=== PATIENT | female | born 1995 | race Caucasian/White ===

== ENCOUNTER → 2018-03-27 16:45 | Outpatient (CLI) | payer OTHER, MEDICAID, SELFPAY ==
[2018-03-27 17:16] LABS: Add Manual Diff / Slide Review NO; Basophils Percent Auto 0.9 % (0-2); Eosinophils Percent Auto 2.1 % (2-4); Hematocrit 39.8 % (36-46); Hemoglobin 13.3 g/dL (12.0-16.0); Lymphocytes Percent Auto 35.8 % (25-40); Mean Corpuscular HGB Conc 33.5 % (30-36); Mean Corpuscular Hemoglobin 29.4 PG (26-34); Mean Corpuscular Volume 87.7 fL (80-100); Monocytes Percent Auto 7.9 % (3-14); Neutrophils Absolute Auto 2900 /uL (3000-5900); Neutrophils Percent Auto 53.3 % (50-75); Platelet Count 219 X10^3/uL (150-400); Red Blood Cell Count 4.54 X10^6/uL (4.0-5.2); Red Cell Distribution Width 13.4 % (11.6-14.8); White Blood Cell Count 5.4 X10^3/uL (4.5-11.0)
[2018-03-27 17:58] LABS: INR 1.1 (0.9-1.3); Prothrombin Time 12.4 SECONDS (10.1-12.7)
[2018-03-27 18:01] LABS: PTT Partial Thromboplastin Tim 29 SECONDS (26.4-36.2)
== END ==
PROVIDERS: Family Provider Family Medicine; PCP Family Medicine; Visit Provider Physician Assistant
DX: T14.8XXA Other injury of unspecified body region, initial encounter (principal)
CPT/HCPCS: 36415; 85025; 85610; 85730

== ENCOUNTER → 2019-01-25 10:35 | Outpatient (CLI) | payer OTHER, MEDICAID, SELFPAY ==
[2019-01-25 11:14] LABS: Add Manual Diff / Slide Review NO; Basophils Absolute Auto 0 /uL (0-100); Basophils Percent Auto 0.8 % (0-2); Eosinophils Absolute Auto 100 /uL (0-450); Eosinophils Percent Auto 1.5 % (2-4); Hematocrit 39.5 % (36-46); Hemoglobin 13.2 g/dL (12.0-16.0); Lymphocytes Absolute Auto 1700 /uL (1100-4500); Mean Corpuscular HGB Conc 33.5 % (30-36); Mean Corpuscular Hemoglobin 29.2 PG (26-34); Mean Corpuscular Volume 87.4 fL (80-100); Monocytes Absolute Auto 400 /uL (0-900); Monocytes Percent Auto 6.7 % (3-14); Neutrophils Absolute Auto 3200 /uL (1500-7000); Platelet Count 214 X10^3/uL (150-400); Red Blood Cell Count 4.52 X10^6/uL (4.0-5.2); Red Cell Distribution Width 13.3 % (11.6-14.8); White Blood Cell Count 5.4 X10^3/uL (4.5-11.0)
[2019-01-25 11:16] LABS: Appearance Urine UA CLEAR; Bilirubin Urine UA NEGATIVE (NEGATIVE); Color Urine UA YELLOW; Glucose Urine UA NEGATIVE (Negative); Ketones Urine UA TRACE (NEGATIVE); Leukocyte Esterase Urine UA NEGATIVE (NEGATIVE); Nitrite Urine UA NEGATIVE (Negative); Occult Blood Urine UA 3+ (Negative); Protein Urine UA NEGATIVE (Negative); Specific Gravity Urine UA 1.015 (1.000-1.035); Urobilinogen Urine UA 0.2 E.U./dL (0.2)
[2019-01-25 11:26] LABS: Pregnancy Test Urine Negative (Negative)
[2019-01-25 11:30] LABS: Alanine Aminotransferase 28 IU/L (9-52); Albumin Globulin Ratio 1.4 (1.0-2.8); Alkaline Phosphatase 69 U/L (38-126); Aspartate Aminotransferase 23 IU/L (14-36); BUN Creatinine Ratio 12.5 (6-22); Bilirubin Total 0.5 mg/dL (0.2-1.3); Blood Urea Nitrogen 10 mg/dL (7-17); Calcium 9.2 mg/dL (8.4-10.2); Carbon Dioxide 25 mmol/L (22-32); Chloride 106 mmol/L (98-107); Cholesterol 161 mg/dL (140-199); Estimated Glomerular Filt Rate > 60.0 mL/min (>60); Globulin 2.8 g/dL (1.7-4.1); Glucose 87 mg/dL (70-100); HDL Cholesterol 52 mg/dL (40-60); HEMOLYSIS < 15 (0-50); LDL Cholesterol Calculated 95 mg/dL (<100); Sodium 138 mmol/L (137-145); Total Protein 6.8 g/dL (6.3-8.2); Triglycerides 71 mg/dL (35-150)
[2019-01-25 12:12] LABS: Thyroid Stimulating Hormone 1.22 uIU/mL (0.47-4.68)
[2019-01-25 12:58] LABS: Urine N gonorrhoeae NOT DETECTED
[2019-01-25 13:15] LABS: Urine Chlamydia NOT DETECTED
[2019-01-28 10:08] LABS: Hepatitis A Antibody IgM NONREACTIVE (NONREACTIVE); Hepatitis Acute Panel Interp 0.01; Hepatitis B Core Antibody IgM NONREACTIVE (NONREACTIVE); Hepatitis B Surface Antigen NONREACTIVE (NONREACTIVE); Hepatitis C Antibody NONREACTIVE
== END ==
PROVIDERS: PCP Family Medicine; Visit Provider Family Medicine
DX: I47.9 Paroxysmal tachycardia, unspecified (principal); Z20.2 Contact with and (suspected) exposure to infections with a predominantly sexual mode of transmission; Z13.220 Encounter for screening for lipoid disorders; Z13.29 Encounter for screening for other suspected endocrine disorder
CPT/HCPCS: 36415; 80053; 80061; 80074; 81003; 81025; 84443; 85025; 87491; 87591

== ENCOUNTER 2021-04-25 18:09 | Emergency (ER) | payer OTHER, MEDICAID, SELFPAY ==
[2021-04-25 18:48] VITALS: BP 167/96; PULSE 97; RESP 18; TEMP 36.1; O2SAT 98
[2021-04-25 20:16] VITALS: BP 143/94; PULSE 78; RESP 16; O2SAT 96
[2021-04-25 20:40] LABS: Add Manual Diff / Slide Review NO; Basophils Absolute Auto 0 /uL (0-100); Basophils Percent Auto 0.7 % (0-2); Eosinophils Absolute Auto 100 /uL (0-450); Eosinophils Percent Auto 1.1 % (2-4); Hematocrit 41.1 % (36-46); Hemoglobin 13.6 g/dL (12.0-16.0); Lymphocytes Absolute Auto 2300 /uL (1100-4500); Lymphocytes Percent Auto 34.9 % (25-40); Mean Corpuscular HGB Conc 33.1 % (30-36); Mean Corpuscular Volume 87.7 fL (80-100); Monocytes Absolute Auto 500 /uL (0-900); Monocytes Percent Auto 7.4 % (3-14); Neutrophils Absolute Auto 3700 /uL (1500-7000); Neutrophils Percent Auto 55.9 % (50-75); Platelet Count 232 X10^3/uL (150-400); Red Blood Cell Count 4.69 X10^6/uL (4.0-5.2); Red Cell Distribution Width 13.3 % (11.6-14.8); White Blood Cell Count 6.6 X10^3/uL (4.5-11.0)
[2021-04-25 20:54] LABS: Alanine Aminotransferase 33 IU/L (<35); Albumin 4.3 g/dL (3.5-5.0); Albumin Globulin Ratio 1.5 (1.0-2.8); Alkaline Phosphatase 49 U/L (38-126); Aspartate Aminotransferase 27 IU/L (14-36); BUN Creatinine Ratio 9.9 (6-22); Bilirubin Total 0.2 mg/dL (0.2-1.3); Blood Urea Nitrogen 8 mg/dL (7-17); Calcium 9.6 mg/dL (8.4-10.2); Carbon Dioxide 27 mmol/L (22-32); Chloride 107 mmol/L (98-107); Estimated Glomerular Filt Rate > 60.0 mL/min (>60); Globulin 2.9 g/dL (1.7-4.1); Glucose 98 mg/dL (70-100); HEMOLYSIS < 15 (0-50); Lipase 206 U/L (23-300); Sodium 140 mmol/L (137-145); Total Protein 7.2 g/dL (6.3-8.2)
--- NOTE | 2021-04-25 20:54 | ED.NAVMDI ---
HPI - Nausea/Vomiting/Diarrhea General Chief complaint: Nausea/Vomiting/Diarrhea Stated complaint: MUCUS IN STOOLS STOMACH PAINS FATIGUE WEIGHT LOSS Time Seen by Provider: 04/25/21 20:28 Source: patient Mode of arrival: Ambulatory Limitations: no limitations History of Present Illness HPI Narrative: This is a 26-year-old female comes in with complaint of unintentional weight loss, fatigue, intermittent bloating, mucousy stools and abdominal cramping. Patient states she has had symptoms for about 12 months. She denies fevers. She is occasionally nauseated but not having any active vomiting. She has occasionally had red in her stool but sometimes close to her menses and was unsure of the source. She has not had any urinary symptoms. She has noted her stools are furniture associate in coloration. She will typically have symptoms once weekly but there does not seem to be any rhyme or rhythm or clear exacerbating factors. She has tried a brat diet which helped with her diarrhea but did not help with her abdominal discomfort. She has also noted she has had some dry flaky skin around her mouth and nose. She has attempted to set up follow-up with primary care but has not seen them yet. She had another episode today and came for evaluation. She does not smoke she drinks occasional alcohol, she does use marijuana but denies any other illicit. Related Data Home Medications Medication Instructions Recorded Confirmed lamotrigine 200 mg tablet 200 mg PO BID 09/14/18 03/13/20 bupropion HCl 100 mg tablet,12 hr 100 mg PO DAILY 12/05/18 03/13/20 sustained-release (Wellbutrin SR) citalopram 10 mg tablet 20 mg PO DAILY 12/05/18 03/13/20 Previous Rx's Medication Instructions Recorded cetirizine 10 mg tablet (Zyrtec) 10 mg PO DAILY #30 tab 12/05/18 lidocaine-aloe vera 0.5 % topical 1 spray TOP BID #127 gram 03/13/20 spray levonorgestrel-ethinyl estradiol See Rx Instructions .ROUTE 04/01/20 0.1 mg-20 mcg tablet (Aviane) .COMPLEX #84 tab Allergies Allergy/AdvReac Type Severity Reaction Status Date / Time trazodone [TRAZODONE] Allergy Intermediate rash Verified 04/25/21 18:52 Review of Systems Review of Systems ROS Unobtainable: All systems reviewed & are unremarkable except as noted in HPI and below Patient History Medical History Anemia (2017) Anxiety (2012) BMI 37.0-37.9, adult Chickenpox (2007) Depression (2012) Jaw pain (2018) PTSD (post-traumatic stress disorder) (2011) Sunburn Surgical History No history of previous surgery Family History Father Age: 44 Mental health problem Mother Age: 45 Mental health problem Grandmother Supraventricular tachycardia Sister Age: 25 Mental health problem Social History Smoking Status: Never smoker second hand exposure: No alcohol intake: never substance use type: does not use Smoking Status: Never smoker alcohol intake frequency: 0-2 drinks per day Substance Use Type: marijuana Exam Narrative Exam Narrative: GENERAL: Alert and oriented x three, female in mild distress. HEENT: Head normocephalic, atraumatic, EOMI, pupils reactive, face symmetric, moist mucous membranes NECK: Supple, full range of motion CARDIOVASCULAR: Regular rate and rhythm without murmurs, rubs or gallops. RESPIRATORY: Breath sounds equal bilaterally, no wheezes rales or rhonchi. ABDOMEN: Soft, nontender. Normoactive bowel sounds all 4 quadrants. No guarding or rebound, rigidity, no mass. Nondistended. : No CVA tenderness EXTREMITIES: Normal range of motion, no clubbing or edema. Neurovascularly intact NEUROLOGICAL: Cranial nerves II through XII grossly intact. Moving all extremities SKIN: Warm, dry, no petechiae, no rashes or lesions. Initial Vital Signs Initial Vital Signs: Vital Signs Temperature 97.0 F L 04/25/21 18:48 Pulse Rate 97 H 04/25/21 18:48 Respiratory Rate 18 04/25/21 18:48 Blood Pressure 167/96 H 04/25/21 18:48 Pulse Oximetry 98 04/25/21 18:48 Course Orders Ordered: ED Orders 04/25/21 20:35 Complete Blood Count AUTO DIFF Stat Comprehensive Metabolic Panel Stat Lipase Stat Vital Signs Vital signs: Vital Signs - 8 hr 04/25/21 18:48 04/25/21 20:16 Temperature 97.0 F L Pulse Rate 97 H 78 Respiratory Rate 18 16 Blood Pressure 167/96 H 143/94 H Pulse Oximetry 98 96 MDM - Nausea/Vomiting/Diarrhea Lab Data Result diagrams: 04/25/21 20:35 04/25/21 20:35 Labs: Lab Results 04/25/21 04/25/21 04/25/21 Range/Units 20:35 20:35 20:35 WBC 6.6 (4.5-11.0) X10^3/uL RBC 4.69 (4.0-5.2) X10^6/uL Hgb 13.6 (12.0-16.0) g/dL Hct 41.1 (36-46) % MCV 87.7 (80-100) fL MCH 29.0 (26-34) PG MCHC 33.1 (30-36) % RDW 13.3 (11.6-14.8) % Plt Count 232 (150-400) X10^3/uL Neut % (Auto) 55.9 (50-75) % Lymph % (Auto) 34.9 (25-40) % [place] % (Auto) 7.4 (3-14) % Eos % (Auto) 1.1 L (2-4) % Baso % (Auto) 0.7 (0-2) % Neut # (Auto) 3700 (8354-6831) /uL Lymph # (Auto) 2300 (2215-3426) /uL [place] # (Auto) 500 (0-900) /uL Eos # (Auto) 100 (0-450) /uL Baso # (Auto) 0 (0-100) /uL Sodium 140 (137-145) mmol/L Potassium 4.0 (3.4-5.1) mmol/L Chloride 107 (98-107) mmol/L Carbon Dioxide 27 (22-32) mmol/L BUN 8 (7-17) mg/dL Creatinine 0.81 (0.52-1.04) mg/dL Estimated GFR > 60.0 (>60) mL/min BUN/Creatinine Ratio 9.9 (6-22) Glucose 98 (70-100) mg/dL Calcium 9.6 (8.4-10.2) mg/dL Total Bilirubin 0.2 (0.2-1.3) mg/dL AST 27 (14-36) IU/L ALT 33 (<35) IU/L Alkaline Phosphatase 49 (38-126) U/L Total Protein 7.2 (6.3-8.2) g/dL Albumin 4.3 (3.5-5.0) g/dL Globulin 2.9 (1.7-4.1) g/dL Albumin/Globulin Ratio 1.5 (1.0-2.8) Lipase 206 (23-300) U/L Point of Care Testing Test Results Negative Urine Dip Bedside Urine Glucose Negative Bedside Urine Bilirubin - Negative Bedside Urine Ketone - Negative Urine Specific [place] 1.025 Bedside Urine Occult Blood - Negative Bedside Urine pH 6.0 Bedside Urine Protein - Negative Bedside Urine Urobilinogen - Negative Bedside Urine Nitrite - Negative Bedside Urine Leukocytes - Negative Esterase MDM Narrative Medical decision making narrative: This is a 26-year-old female who has had intermittent symptoms for the past year of mucousy diarrhea, abdominal bloating, cramping and unintentional weight loss. Patient labs today are reassuring. Her urine does not show any acute changes. Discussed that I think she would be best suited by stool studies as well as a colonoscopy and she is going to touch base with her primary care to set this up. We did discuss return precautions. All questions answered. Discharge Plan Departure Patient Disposition: Home Clinical Impression: Frequent diarrhea Instructions: Diarrhea Activity Restrictions/Additional Instructions: Follow-up with your primary care physician for recheck. Labs today are reassuring. You may need to give a stool sample. A specimen cup has been provided. Your physician can help you set up outpatient testing. It may also be helpful to get a colonoscopy at some point and your physician can help arrange this as well. Please return for fevers, new or worsening abdominal, back flank pain, persistent vomiting, black bloody stools, lightheadedness or passing out or other new or concerning symptoms. Prescriptions: No Action lamotrigine 200 mg tablet 200 mg PO BID RF: 0 levonorgestrel-ethinyl estrad [Aviane] 0.1-20 mg-mcg tablet See Rx Instructions .ROUTE .COMPLEX Qty: 84 RF: 2 lidocaine-aloe vera 0.5 % aerosol,spray 1 spray TOP BID Qty: 127 RF: 0 citalopram 10 mg tablet 20 mg PO DAILY RF: 0 bupropion HCl [Wellbutrin SR] 100 mg tablet sustained-release 12 hr 100 mg PO DAILY RF: 0 cetirizine [Zyrtec] 10 mg tablet 10 mg PO DAILY Qty: 30 RF: 2 Referrals: Natalie Corbett ARNP [Primary Care Provider] -
== END 2021-04-25 22:03 | disposition home or self-care (01) ==
PROVIDERS: Emergency Provider Emergency Medicine; PCP Registered Nurse
DX: R19.7 Diarrhea, unspecified (principal); R10.9 Unspecified abdominal pain; R63.4 Abnormal weight loss
CPT/HCPCS: 36415; 80053; 81003; 81025; 83690; 85025; 99283

== ENCOUNTER → 2021-08-12 18:31 | Outpatient (CLI) | payer OTHER, MEDICAID, SELFPAY ==
[2021-08-12 20:42] LABS: Urine N gonorrhoeae NOT DETECTED
[2021-08-12 20:56] LABS: Urine Chlamydia NOT DETECTED
== END ==
PROVIDERS: PCP Registered Nurse; Visit Provider Nurse Practitioner Family
DX: N89.8 Other specified noninflammatory disorders of vagina (principal); Z13.9 Encounter for screening, unspecified
CPT/HCPCS: 87210; 87491; 87591

== ENCOUNTER → 2021-09-02 14:33 | Outpatient (CLI) | payer OTHER, MEDICAID, SELFPAY ==
[2021-09-02 15:02] LABS: Add Manual Diff / Slide Review NO; Basophils Absolute Auto 100 /uL (0-100); Eosinophils Absolute Auto 100 /uL (0-450); Eosinophils Percent Auto 2.1 % (2-4); Hematocrit 40.5 % (36-46); Hemoglobin 13.6 g/dL (12.0-16.0); Lymphocytes Absolute Auto 1700 /uL (1100-4500); Lymphocytes Percent Auto 30.4 % (25-40); Mean Corpuscular HGB Conc 33.5 % (30-36); Mean Corpuscular Volume 86.5 fL (80-100); Monocytes Absolute Auto 300 /uL (0-900); Neutrophils Absolute Auto 3400 /uL (1500-7000); Neutrophils Percent Auto 60.5 % (50-75); Platelet Count 209 X10^3/uL (150-400); Red Blood Cell Count 4.69 X10^6/uL (4.0-5.2); Red Cell Distribution Width 13.2 % (11.6-14.8); White Blood Cell Count 5.6 X10^3/uL (4.5-11.0)
[2021-09-02 15:19] LABS: Alanine Aminotransferase 17 IU/L (<35); Albumin 4.3 g/dL (3.5-5.0); Albumin Globulin Ratio 1.5 (1.0-2.8); Alkaline Phosphatase 64 U/L (38-126); Aspartate Aminotransferase 24 IU/L (14-36); BUN Creatinine Ratio 11.4 (6-22); Bilirubin Total 0.4 mg/dL (0.2-1.3); Blood Urea Nitrogen 9 mg/dL (7-17); Calcium 9.7 mg/dL (8.4-10.2); Carbon Dioxide 25 mmol/L (22-32); Chloride 108 mmol/L (98-107); Estimated Glomerular Filt Rate > 60.0 mL/min (>60); Globulin 2.8 g/dL (1.7-4.1); Glucose 97 mg/dL (70-100); HEMOLYSIS < 15 (0-50); Lipase 161 U/L (23-300); Potassium 3.9 mmol/L (3.4-5.1); Sodium 139 mmol/L (137-145); Total Protein 7.1 g/dL (6.3-8.2)
[2021-09-02 19:38] LABS: Hepatitis B Surface Antigen NEGATIVE s/c (NEGATIVE)
[2021-09-02 19:47] LABS: HIV 1 & 2 Ab/Ag 4th Gen Combo NEGATIVE (NEGATIVE); Hep C Virus Ab w/Reflex Quant NEGATIVE s/c (NEGATIVE)
[2021-09-03 05:14] LABS: HSV 2 IGG AB < 0.91 index (0.00-0.90); HSV1IGG < 0.91 index (0.00-0.90)
[2021-09-03 20:27] LABS: Treponema pallidum Antibodies Non Reactive (Non Reactive)
== END ==
PROVIDERS: PCP Registered Nurse; Referring Provider Nurse Practitioner Family; Visit Provider Nurse Practitioner Family
DX: Z20.2 Contact with and (suspected) exposure to infections with a predominantly sexual mode of transmission (principal); R10.9 Unspecified abdominal pain
CPT/HCPCS: 36415; 80053; 83690; 85025; 86695; 86696; 86780; 86803; 87340; 87389

== ENCOUNTER → 2021-09-04 12:13 | Outpatient (CLI) | payer OTHER, MEDICAID, SELFPAY ==
[2021-09-05 12:18] LABS: Interpretation Negative (Negative)
== END ==
PROVIDERS: PCP Registered Nurse; Referring Provider Registered Nurse; Visit Provider Registered Nurse
DX: R19.5 Other fecal abnormalities (principal); R10.9 Unspecified abdominal pain
CPT/HCPCS: 36415; 83013; 87045; 87899

== ENCOUNTER 2023-09-04 22:27 | Emergency (ER) | payer OTHER, MEDICAID, SELFPAY ==
[2023-09-04 22:29] VITALS: BP 132/76; PULSE 92; RESP 18; TEMP 36.6; O2SAT 96; BMI 30.1
--- NOTE | 2023-09-04 22:35 | DI.RAD.S_ITS ---
PROCEDURE: XR ANKLE LT MIN 3V INDICATIONS: Hurt left foot walking down stairs TECHNIQUE: 3 views of the ankle were acquired. COMPARISON: None. FINDINGS: Bones: No fractures or dislocations. Ankle mortise is normally aligned. No suspicious bony lesions. Soft tissues: No tibiotalar joint effusion. Achilles tendon appears normal. IMPRESSION: No acute bony abnormality or significant effusion. Dictated by: Kate Gonzales M.D. on 09/04/2023 at 23:45 Approved by: Kate Gonzales M.D. on 09/04/2023 at 23:45
--- NOTE | 2023-09-04 22:35 | DI.RAD.S_ITS ---
PROCEDURE: XR FOOT LT MIN 3V INDICATIONS: Hurt left foot walking down stairs TECHNIQUE: 3 views of the foot were acquired. COMPARISON: None. FINDINGS: Bones: No fractures or dislocations. No suspicious bony lesions. Soft tissues: No tibiotalar joint effusion. Achilles tendon appears normal. IMPRESSION: No acute bony abnormality. Dictated by: Kate Gonzales M.D. on 09/04/2023 at 23:45 Approved by: Kate Gonzales M.D. on 09/04/2023 at 23:46
--- NOTE | 2023-09-05 00:15 | ED.LOWEXIN ---
HPI - Extremity Injury (Lower) General Chief Complaint: Extremity Injury, Lower Stated Complaint: fell/lt foot inj Time Seen by Provider: 09/05/23 00:15 Source: patient Mode of arrival: Ambulatory History of Present Illness HPI Narrative: Patient is a 28-year-old healthy female who presents today with left foot pain. She states she was walking down the stairs and she is looking where she was going when she twisted. She thought she heard some popping. It hurts to ambulate and bear weight. No knee pain no head injury no other complaints today. Related Data Home Medications Medication Instructions Recorded Confirmed lamotrigine 200 mg tablet 200 mg PO BID 09/14/18 09/02/21 bupropion HCl 100 mg tablet,12 hr 100 mg PO DAILY 12/05/18 09/02/21 sustained-release (Wellbutrin SR) citalopram 10 mg tablet 20 mg PO DAILY 12/05/18 09/02/21 Previous Rx's Medication Instructions Recorded levonorgestrel-ethinyl estradiol See Rx Instructions .Route 06/01/21 0.1 mg-20 mcg tablet (Falmina (28)) .COMPLEX #84 tabs Allergies Allergy/AdvReac Type Severity Reaction Status Date / Time trazodone [TRAZODONE] Allergy Intermediate rash Verified 09/02/21 14:08 Patient History Medical History Anemia (2017) Anxiety (2012) BMI 37.0-37.9, adult Change in stool Chickenpox (2007) Depression (2012) Gastroenteritis Jaw pain (2017) PTSD (post-traumatic stress disorder) (2011) Sunburn Surgical History No history of previous surgery Family History Father Age: 46 Mental health problem Mother Age: 47 Mental health problem Grandmother Supraventricular tachycardia Sister Age: 27 Mental health problem Social History Smoking Status: Never smoker second hand exposure: No alcohol intake: never substance use type: does not use Smoking Status: Never smoker alcohol intake frequency: 0-2 drinks per day Substance Use Type: marijuana Exam Initial Vital Signs Initial Vital Signs: Vital Signs Temperature 97.9 F 09/04/23 22:29 Pulse Rate 92 H 09/04/23 22:29 Respiratory Rate 18 09/04/23 22:29 Blood Pressure 132/76 09/04/23 22:29 Pulse Oximetry 96 09/04/23 22:29 Oxygen Delivery Method Room Air 09/04/23 22:29 GENERAL: Well-appearing, well-nourished and in no acute distress. CARDIOVASCULAR: peripheral pulses in tact, cap refill <2 sec RESPIRATORY: No respiratory distress, speaks in full sentences without difficulty EXTREMITIES: Normal range of motion, no clubbing or edema. Neurovascularly intact Left lower extremity mild contusion noted laterally no significant 5th metatarsal pain. Distal pedal pulse intact. No significant swelling over malleoli. Achilles intact. NEUROLOGICAL: Cranial nerves II through XII grossly intact. Normal gait and speech. SKIN: Warm, dry, no petechiae, no rashes or lesions. Course Orders Ordered: ED Orders 09/04/23 22:35 XR ankle LT min 3V Stat XR foot LT min 3V Stat Vital Signs Vital signs: Vital Signs - 8 hr 09/04/23 22:29 09/05/23 00:26 Temperature 97.9 F Pulse Rate 92 H 82 Respiratory Rate 18 16 Blood Pressure 132/76 145/83 H Pulse Oximetry 96 97 Oxygen Delivery Method Room Air Room Air MDM - Extremity Injury (Lower) Imaging Data Extremity x-ray #1: Radiologist's Impression: PROCEDURE: XR ANKLE LT MIN 3V INDICATIONS: Hurt left foot walking down stairs TECHNIQUE: 3 views of the ankle were acquired. COMPARISON: None. FINDINGS: Bones: No fractures or dislocations. Ankle mortise is normally aligned. No suspicious bony lesions. Soft tissues: No tibiotalar joint effusion. Achilles tendon appears normal. IMPRESSION: No acute bony abnormality or significant effusion. Dictated by: Kate Gonzales M.D. on 09/04/2023 at 23:45 Extremity x-ray #2: Radiologist's Impression: PROCEDURE: XR FOOT LT MIN 3V INDICATIONS: Hurt left foot walking down stairs TECHNIQUE: 3 views of the foot were acquired. COMPARISON: None. FINDINGS: Bones: No fractures or dislocations. No suspicious bony lesions. Soft tissues: No tibiotalar joint effusion. Achilles tendon appears normal. IMPRESSION: No acute bony abnormality. Dictated by: Kate Gonzales M.D. on 09/04/2023 at 23:45 MDM Narrative Medical decision making narrative: Patient healthy 28-year-old female who presents today with left foot pain after falling down stairs. X-rays have been reviewed and are negative. She has a mild contusion. Symptoms are consistent with sprain. Given crutches in ED Discharge Plan Departure Patient Disposition: Home Clinical Impression: Sprain of foot, left Instructions: DI for Foot Sprain Activity Restrictions/Additional Instructions: *You have been diagnosed with left foot sprain *What to do: Elevate and ice as often as possible. Use crutches as needed. May weightbear as tolerated *Continue to take medications as directed Naproxen 500 mg every 12 hours if needed for pain Tylenol 1000 mg every 6 hours if needed for [id number] pain *Follow up with your primary care provider in 2-3 days or call [phone] *Return to ER if you should have increasing pain numbness tingling weakness or any new, worsening or concerning symptoms Prescriptions: No Action lamotrigine 200 mg tablet 200 mg PO BID levonorgestrel-ethinyl estrad [Falmina (28)] 0.1-20 mg-mcg tablet See Rx Instructions .ROUTE .COMPLEX Qty: 84 0RF Dose Instruction: TAKE ONE TABLET BY MOUTH ONE TIME DAILY Rx Instructions: TAKE ONE TABLET BY MOUTH ONE TIME DAILY citalopram 10 mg tablet 20 mg PO DAILY bupropion HCl [Wellbutrin SR] 100 mg tablet sustained-release 12 hr 100 mg PO DAILY Stand Alone Forms: Patient Portal/API
[2023-09-05 00:26] VITALS: BP 145/83; PULSE 82; RESP 16; O2SAT 97
== END 2023-09-05 00:37 | disposition home or self-care (01) ==
PROVIDERS: Emergency Provider Emergency Medicine
DX: S93.602A Unspecified sprain of left foot, initial encounter (principal); X50.1XXA Overexertion from prolonged static or awkward postures, initial encounter
CPT/HCPCS: 73610; 73630; 99283